=== PATIENT | male | born 1995 | race Caucasian/White ===

== ENCOUNTER 2016-10-10 10:06 | Emergency (ER) | payer OTHER ==
[~2016-10-10] VITALS: Ht 172.7 cm; Wt 66.7 kg
[2016-10-10 10:11] VITALS: BP 111/72
--- NOTE | 2016-10-10 11:42 | NUR ---
Patient ambulated to bed 5.
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
[2016-10-10] MEDS ORDERED: KETOROLAC 60 MG/2 ML VIAL IM ONE (12:25)
[2016-10-10 12:57] VITALS: BP 108/66
--- NOTE | 2016-10-10 12:57 | NUR ---
Patient discharged with v/s stable. Written and verbal after care instructions given and explained. Patient alert, oriented and verbalized understanding of instructions. Ambulatory with steady gait. All questions addressed prior to discharge. ID band removed. Patient advised to follow up with PMD. Rx of NORCO & MOTRIN given. Patient educated on indication of medication including possible reaction and side effects. Opportunity to ask questions provided and answered.
== END 2016-10-10 12:57 | disposition home or self-care (01) ==
LOC: MED 10:06
DX: S60.417A Abrasion of left little finger, initial encounter (principal); S80.812A Abrasion, left lower leg, initial encounter; M25.552 Pain in left hip; V29.9XXA Motorcycle rider (driver) (passenger) injured in unspecified traffic accident, initial encounter; Y93.89 Activity, other specified; Y92.89 Other specified places as the place of occurrence of the external cause; Y99.8 Other external cause status
CPT/HCPCS: 73130; 73590; 96372; 99284; J1885